=== PATIENT | male | born 1975 | race African-American/Black ===

== ENCOUNTER 2016-09-10 16:47 | Emergency (ER) | payer SELFPAY ==
[~2016-09-10] VITALS: Ht 177.8 cm; Wt 65.9 kg
[~2016-09-10 16:47] MED LIST: DILA8TAB4 PO; METH500T3 PO
[2016-09-10 16:48] VITALS: BP 137/82; PULSE 89; RESP 15; TEMP 98.2; O2SAT 98
[2016-09-10] MEDS ORDERED: IBUP800T23 PO (17:41)
[2016-09-10] MEDS ORDERED: PERI0.126 SWISH-SPIT (17:41)
[2016-09-10] MEDS ORDERED: AMOX500C PO (17:41)
--- NOTE | 2016-09-10 17:41 | PD ---
HPI Chief Complaint: Oral / Dental Pain or Problem Time Seen by Provider: 17:39 Travel History International Travel<30 days: No Contact w/Intl Traveler<30days: No Traveled to known affect area: No History of Present Illness HPI 40-year-old male presents to the emergency Department with complaint of left tooth pain. The patient is sleeping upon arrival into the room for physical exam. Patient is being non-cooperative with questions because he says it hurts too much to talk. Patient is unwilling to answer questions and be cooperative therefore history of present illness is limited. No other modifying factors or associated signs and symptoms. PFSH Past Medical History Medical History: Denies Significant Hx Diminished Hearing: No Hepatitis: Yes (C) Tetanus Vaccination: < 5 Years Influenza Vaccination: No Past Surgical History Other Surgery: Yes (hand) Social History Alcohol Use: Yes Tobacco Use: Yes (1 ppd) Substance Use: Yes (marijuana ) Allergies-Medications (Allergen,Severity, Reaction): Coded Allergies: Clindamycin (Verified Allergy, Intermediate, EDEMA, 09/10/16) Reported Meds & Prescriptions Reported Meds & Active Scripts Active Amoxicillin 500 Mg Cap 500 Mg PO BID 10 Days Ibuprofen 800 Mg Tab 800 Mg PO Q6HR PRN Peridex Liq (Chlorhexidine Gluconate (Mouth) Liq) 0.12% Soln 15 Ml SWISH-SPIT BID 10 Days Review of Systems Except as stated in HPI: all other systems reviewed are Neg Physical Exam Narrative GENERAL: Well-nourished, well-developed male patient, in no acute distress; afebrile, nontoxic-appearing; patient sleeping soundly prior to physical exam SKIN: Warm and dry. HEAD: Atraumatic. Normocephalic. No facial edema, erythema, tenderness on palpation. No lymphadenopathy. EYES: Pupils equal and round. No scleral icterus. No injection or drainage. ENT: Mucosa pink and moist. Airway patent. MOUTH: Mucous membranes moist, no lesions, tongue and gums appear normal. Unable to verify what tooth is painful secondary to patient being uncooperative during physical exam. NECK: Trachea midline. No lymphadenopathy. CARDIOVASCULAR: Regular rate. RESPIRATORY: No accessory muscle use. GASTROINTESTINAL: Flat. MUSCULOSKELETAL: No obvious deformities. No clubbing. No cyanosis. No edema. NEUROLOGICAL: Awake and alert. Oriented 3. No obvious cranial nerve deficits. Motor grossly within normal limits. Normal speech. PSYCHIATRIC: Appropriate mood and affect; insight and judgment normal. Data Data Last Documented VS Vital Signs Date Time Temp Pulse Resp B/P Pulse Ox O2 Delivery O2 Flow Rate FiO2 09/10/16 16:48 98.2 89 15 137/82 98 [facility] Medical Decision Making Medical Screen Exam Complete: Yes Emergency Medical Condition: Yes Medical Record Reviewed: Yes Differential Diagnosis Dentalgia, dental abscess, dental impaction, dental caries Narrative Course 40-year-old male physical examination consistent with left-sided dental pain. History of present illness and physical exam is limited secondary to patient being uncooperative when trying to obtain information. He was sleeping quietly and soundly, prior to physical exam, in the room. No facial edema or erythema. Patient is afebrile and nontoxic-appearing. Amoxicillin, Peridex mouth rinse , ibuprofen prescribed for home. Patient is medically cleared and stable for discharge. Discussed reasons to return to the emergency department. Instructed patient to follow up with primary care provider. Patient agrees with treatment plan. The patients vital signs are stable and the patient is stable for outpatient follow-up and treatment. Patient discharged home, stable and in no acute distress. Diagnosis Primary Impression: Dentalgia Referrals: Dentist Primary Care Physician Patient Instructions: Dental Abscess (ED), Dental Caries (ED), General Instructions, Toothache (ED) Departure Forms: Tests/Procedures, Work Release Enter return to work date: Sep 11, 2016 Additional Instructions: Complete full course of antibiotics Ibuprofen as directed and as needed to reduce pain and inflammation Use Use Peridex as directed for oral hygiene Warm compresses to the affected area Follow-up with dentist Follow-up with primary care provider Return to emergency department immediately with worsening of symptoms Med/Other Pt SpecificInfo: Prescription(s) given Scripts Amoxicillin 500 Mg [id number] Mg PO BID 10 Days Ref 0 Prov:Ada Dee 09/10/16 Ibuprofen 800 Mg [id number] Mg PO Q6HR PRN (PAIN) #30 TAB Ref 0 Prov:Ada Dee 09/10/16 Chlorhexidine Gluconate (Mouth) Liq (Peridex Liq)0.12% Soln15 Ml SWISH-SPIT BID 10 Days Ref 0 Prov:Ada Dee 09/10/16 Disposition: 01 DISCHARGE HOME Condition: Stable Ada Dee Sep 10, 2016 17:41
== END 2016-09-10 23:28 | disposition home or self-care (01) ==
LOC: NEPB 16:47
DX: K08.89 Other specified disorders of teeth and supporting structures (principal); F17.200 Nicotine dependence, unspecified, uncomplicated
CPT/HCPCS: 99282

== ENCOUNTER 2017-02-06 19:50 | Emergency (ER) | payer SELFPAY ==
[~2017-02-06] VITALS: Ht 177.8 cm; Wt 63.0 kg
[~2017-02-06 19:50] MED LIST changes: +AMOX500C PO; -DILA8TAB4 PO; +IBUP800T23 PO; -METH500T3 PO; +PERI0.126 SWISH-SPIT
[2017-02-06 20:00] VITALS: BP 160/88; PULSE 102; RESP 20; TEMP 97.8; O2SAT 99
[2017-02-06] MEDS ORDERED: SODIUM CHLOR 0.9% 1000 ML INJ 1,000 ML IV ONE (20:00)
--- NOTE | 2017-02-06 20:13 | PD ---
HPI . Diffuse muscle cramps Chief Complaint: Musculoskeletal Complaint Time Seen by Provider: 19:58 Travel History International Travel<30 days: No Contact w/Intl Traveler<30days: No Traveled to known affect area: No History of Present Illness HPI This patient presents to us via [facility] with the chief complaint of diffuse muscle cramps. This started after he used cocaine, heroin 1 and flakka. Onset of symptoms was a couple of hours ago. Patient reports that his symptoms were initially severe but had been somewhat improved by IV fluids given by EMS. PFSH Past Medical History Diminished Hearing: No Hepatitis: Yes (C) Medical other: Yes (polysubstance abuse) Past Surgical History Other Surgery: Yes (hand) Social History Alcohol Use: Yes Tobacco Use: Yes (1 ppd) Substance Use: Yes (marijuana ) Allergies-Medications (Allergen,Severity, Reaction): Coded Allergies: Clindamycin (Verified Allergy, Intermediate, EDEMA, 02/06/17) Reported Meds & Prescriptions Reported Meds & Active Scripts Active Amoxicillin 500 Mg Cap 500 Mg PO BID 10 Days Ibuprofen 800 Mg Tab 800 Mg PO Q6HR PRN Peridex Liq (Chlorhexidine Gluconate (Mouth) Liq) 0.12% Soln 15 Ml SWISH-SPIT BID 10 Days Review of Systems Except as stated in HPI: all other systems reviewed are Neg Musculoskeletal: Positive: Cramping Physical Exam Narrative GENERAL: Patient is awake and alert and does not appear to be in any acute distress. SKIN: Warm and dry. HEAD: Atraumatic. Normocephalic. EYES: Pupils equal and round. Extraocular movements are intact. ENT: No nasal bleeding or discharge. Mucous membranes pink and moist. NECK: Trachea midline. Neck is supple. CARDIOVASCULAR: Regular rate and rhythm. Heart sounds are normal. RESPIRATORY: No accessory muscle use. Lungs are clear with full air movement throughout. GASTROINTESTINAL: Abdomen soft, non-tender, nondistended. MUSCULOSKELETAL: No obvious deformities. No edema. NEUROLOGICAL: Awake and alert. No obvious cranial nerve deficits. Motor grossly within normal limits. Normal speech. PSYCHIATRIC: Appropriate mood and affect; insight and judgment normal. Data Data Last Documented VS Vital Signs Date Time Temp Pulse Resp B/P Pulse Ox O2 Delivery O2 Flow Rate FiO2 02/06/17 20:00 97.8 102 20 160/88 99 Orders Complete Blood Count With Diff (02/06/17 19:58) Comprehensive Metabolic Panel (02/06/17 19:58) Creatine Kinase (Cpk) (02/06/17 19:58) Sodium Chlor 0.9% 1000 Ml Inj (Ns 1000 M (02/06/17 20:00) CKMB (02/06/17 20:11) CKMB% (02/06/17 20:11) Labs Laboratory Tests Test 02/06/17 20:11 White Blood Count 11.2 TH/MM3 Red Blood Count 4.69 MIL/MM3 Hemoglobin 12.5 GM/DL Hematocrit 38.5 % Mean Corpuscular Volume 82.1 FL Mean Corpuscular Hemoglobin 26.7 PG Mean Corpuscular Hemoglobin 32.5 % Concent Red Cell Distribution Width 15.5 % Platelet Count 172 TH/MM3 Mean Platelet Volume 9.4 FL Neutrophils (%) (Auto) 76.8 % Lymphocytes (%) (Auto) 11.0 % Monocytes (%) (Auto) 11.3 % Eosinophils (%) (Auto) 0.3 % Basophils (%) (Auto) 0.6 % Neutrophils # (Auto) 8.6 TH/MM3 Lymphocytes # (Auto) 1.2 TH/MM3 Monocytes # (Auto) 1.3 TH/MM3 Eosinophils # (Auto) 0.0 TH/MM3 Basophils # (Auto) 0.1 TH/MM3 CBC Comment DIFF FINAL Differential Comment Sodium Level 137 MEQ/L Potassium Level 3.8 MEQ/L Chloride Level 105 MEQ/L Carbon Dioxide Level 22.1 MEQ/L Anion Gap 10 MEQ/L Blood Urea Nitrogen 38 MG/DL Creatinine 1.91 MG/DL Estimat Glomerular Filtration 48 ML/MIN Rate Random Glucose 80 MG/DL Calcium Level 8.6 MG/DL Total Bilirubin 0.6 MG/DL Aspartate Amino Transf 43 U/L (AST/SGOT) Alanine Aminotransferase 57 U/L (ALT/SGPT) Alkaline Phosphatase 87 U/L Total Creatine Kinase 377 U/L Total Protein 8.1 GM/DL Albumin 4.3 GM/DL [facility] Medical Decision Making Medical Screen Exam Complete: Yes Emergency Medical Condition: Yes Differential Diagnosis Differential diagnosis includes but is not limited to polysubstance abuse, suicidal ideation, manipulative behavior, rhabdomyolysis Narrative Course This patient presents complaining with diffuse muscle spasms after using cocaine , heroin and flakka. He'll be treated with IV fluids. Routine labs will be checked including a CK to rule out rhabdomyolysis. CBC & BMP Diagram 02/06/17 20:11 LFTs are essentially normal. Total CK is 377. The patient is now resting comfortably. He is stable for discharge. Diagnosis Primary Impression: Polysubstance abuse Additional Impression: Cramps, muscle, general Disposition: 01 DISCHARGE HOME Condition: Stable Jennifer Gallardo MD Feb 06, 2017 20:13
[2017-02-06 20:21] LABS: AUTOMATED NEUTROPHIL # 8.6 TH/MM3 (1.8-7.7); BASOPHIL # 0.1 TH/MM3 (0-0.2); BASOPHIL % 0.6 % (0.0-2.0); EOSINOPHIL % 0.3 % (0.0-4.0); HEMATOCRIT 38.5 % (39.0-51.0); HEMO FLAGS DIFF FINAL; LYMPHOCYTE # 1.2 TH/MM3 (1.0-4.8); MEAN CELL VOLUME 82.1 FL (80.0-100.0); MEAN CORPUSCULAR HEMOGLOBIN 26.7 PG (27.0-34.0); MEAN CORPUSCULAR HGB CONC 32.5 % (32.0-36.0); MONO % 11.3 % (0.0-8.0); NEUT % 76.8 % (16.0-70.0); PLATELET COUNT 172 TH/MM3 (150-450); RED BLOOD COUNT 4.69 MIL/MM3 (4.50-5.90); RED CELL DISTRIBUTION WIDTH 15.5 % (11.6-17.2); WHITE BLOOD COUNT 11.2 TH/MM3 (4.0-11.0)
[2017-02-06 20:42] LABS: ALT (GPT) 57 U/L (12-78)
[2017-02-06 20:43] LABS: ANION GAP 10 MEQ/L (5-15); AST (GOT) 43 U/L (15-37); BICARBONATE 22.1 MEQ/L (21.0-32.0); BLOOD UREA NITROGEN 38 MG/DL (7-18); CHLORIDE 105 MEQ/L (98-107); GLOMERULAR FILTRATION RATE 48 ML/MIN (>89); POTASSIUM 3.8 MEQ/L (3.5-5.1); SODIUM (NA) 137 MEQ/L (136-145)
[2017-02-06 20:44] LABS: ALKALINE PHOSPHATASE 87 U/L (45-117); CREATINE KINASE 377 U/L (39-308); TOTAL BILIRUBIN ADULT 0.6 MG/DL (0.2-1.0)
[2017-02-06 21:00] LABS: CKMB 0.7 NG/ML (0.5-3.6)
[2017-02-06 21:02] VITALS: BP 149/78; PULSE 90; RESP 18; O2SAT 100
== END 2017-02-06 21:13 | disposition home or self-care (01) ==
LOC: NEPC 19:50
DX: F19.10 Other psychoactive substance abuse, uncomplicated (principal); M62.838 Other muscle spasm; F17.200 Nicotine dependence, unspecified, uncomplicated; Z79.899 Other long term (current) drug therapy
CPT/HCPCS: 80053; 82550; 82552; 85025; 96360; 99284; J7030

== ENCOUNTER 2017-07-30 20:29 | Emergency (ER) | payer SELFPAY ==
[~2017-07-30] VITALS: Ht 170.2 cm; Wt 65.0 kg
[~2017-07-30 20:29] MED LIST changes: +IBUP1TAB7 PO; -IBUP800T23 PO
[2017-07-30 20:54] VITALS: BP 138/86; PULSE 107; RESP 18; TEMP 98.1; O2SAT 99
[2017-07-30 20:58] VITALS: O2SAT 99
[2017-07-30] MEDS ORDERED: LITH150C PO (21:00)
[2017-07-30] MEDS ORDERED: RISP3 PO (21:02)
[2017-07-30] MEDS ORDERED: TRAZ1TAB14 PO (21:02)
[2017-07-30] MEDS ORDERED: LITH300C2 PO (21:02)
--- NOTE | 2017-07-30 21:30 | RADRPT ---
EXAM DATE/TIME: 07/30/2017 21:10 [place] COMPARISON: No previous studies available for comparison. INDICATIONS : Altered mental status. RADIATION DOSE: 69.15 CTDIvol (mGy) MEDICAL HISTORY : Drug abuse. SURGICAL HISTORY : None. ENCOUNTER: Initial ACUITY: 1 day PAIN SCALE: 0/10 LOCATION: cranial TECHNIQUE: Multiple contiguous axial images were obtained of the head. Using automated exposure control and adj ustment of the mA and/or kV according to patient size, radiation dose was kept as low as reasonably a chievable to obtain optimal diagnostic quality images. DICOM format image data is available electro nically for review and comparison. FINDINGS: CEREBRUM: The ventricles are normal for age. No evidence of midline shift, mass lesion, hemorrhage or acute in farction. No extra-axial fluid collections are seen. POSTERIOR FOSSA: The cerebellum and brainstem are intact. The 4th ventricle is midline. The cerebellopontine angle i s unremarkable. EXTRACRANIAL: The visualized portion of the orbits is intact. SKULL: The calvaria is intact. No evidence of skull fracture. CONCLUSION: Normal examination. Christos Nichols Jr., MD on July 30, 2017 at 21:26 Board Certified Radiologist. This report was verified electronically.
--- NOTE | 2017-07-30 21:37 | PD ---
HPI Chief Complaint: Altered Mental Status Time Seen by Provider: 20:57 Travel History International Travel<30 days: No Contact w/Intl Traveler<30days: No Traveled to known affect area: No History of Present Illness HPI 41-year-old male that presents to the ED for evaluation of altered mental status. Apparently patient had a possible seizure. Patient has a history of substance abuse on states that he has been using Flector, cocaine, heroine multiple other drugs recently. Per patient his last use today. Per patient he had a possible seizure today. Per patient somebody called the ambulance on him. He states that he did not came back to read until he wants in the ambulance. Per patient he did use today. He denies any chest pain or shortness of breath. No headache beer per patient he has a history of psychiatric illness since supposed to take lithium. He will not really tell me what psychiatric diagnosis he has had. Per patient he wants recently released from snf in follow without hearing officer. He denies any injuries of any kind. He does not remember the episode beer per patient has had seizures before but never been diagnosed with seizure disorder. Allergies to clindamycin. No urinary or bowel movement issues. History as limited because of acute intoxication. PFSH Past Medical History Diminished Hearing: No Hepatitis: Yes (C) Medical other: Yes (SEIZURES) Seizures: Yes Influenza Vaccination: No Past Surgical History Other Surgery: Yes (hand) Social History Alcohol Use: Yes Tobacco Use: Yes (1 ppd) Substance Use: Yes (marijuana , METH, HEROIN, LEON, FLAKKA) Allergies-Medications (Allergen,Severity, Reaction): Coded Allergies: clindamycin (Unverified Allergy, Intermediate, EDEMA, 07/30/17) Reported Meds & Prescriptions Reported Meds & Active Scripts Active Reported [place] Carbonate 300 Mg Cap 300 Mg PO BID Trazodone (Trazodone HCl) 150 Mg Tablet 150 Mg PO HS Risperdal (Risperidone) 3 Mg Tab 3 Mg PO HS Review of Systems ROS Limitations: Intoxication Except as stated in HPI: all other systems reviewed are Neg Physical Exam Exam Limitations: Intoxication Narrative GENERAL: SKIN: Warm and dry. HEAD: Atraumatic. Normocephalic. EYES: Pupils equal and round. No scleral icterus. No injection or drainage. ENT: No nasal bleeding or discharge. Mucous membranes pink and moist. Tongue midline. No uvula deviation. NECK: Trachea midline. No JVD. CARDIOVASCULAR: Regular rate and rhythm. No murmurs, S3, S4. RESPIRATORY: No accessory muscle use. Clear to auscultation. Breath sounds equal bilaterally. GASTROINTESTINAL: Abdomen soft, non-tender, nondistended. Hepatic and splenic margins not palpable. MUSCULOSKELETAL: Extremities without clubbing, cyanosis, or edema. No obvious deformities. Full range of motion of the (lower extremities bilaterally. NEUROLOGICAL: Awake and alert. No obvious cranial nerve deficits. Motor grossly within normal limits. Five out of 5 muscle strength in the arms and legs. Normal speech. PSYCHIATRIC: Appropriate mood and affect; insight and judgment normal. Data Data Last Documented VS Vital Signs Date Time Temp Pulse Resp B/P (MAP) Pulse Ox O2 Delivery O2 Flow Rate FiO2 07/30/17 20:58 99 Room Air 07/30/17 20:54 98.1 107 18 138/86 (103) Orders Orders Electrocardiogram (07/30/17 20:56) Complete Blood Count With Diff (07/30/17 20:56) Comprehensive Metabolic Panel (07/30/17 20:56) Creatine Kinase (Cpk) (07/30/17 20:56) Magnesium (Mg) (07/30/17 20:56) [place] (Li) (07/30/17 20:56) Ct Brain W/O Iv Contrast(Rout) (07/30/17 20:56) Iv Access Insert/Monitor (07/30/17 20:56) Ecg Monitoring (07/30/17 20:56) Oximetry (07/30/17 20:56) Drug Screen, Random Urine (07/30/17 20:56) Alcohol (Ethanol) (07/30/17 20:56) Salicylates (Aspirin) (07/30/17 20:56) Tylenol (Acetaminophen) (07/30/17 20:56) Labs Laboratory Tests Test 07/30/17 21:42 White Blood Count 14.6 TH/MM3 Red Blood Count 5.03 MIL/MM3 Hemoglobin 13.3 GM/DL Hematocrit 41.2 % Mean Corpuscular Volume 81.8 FL Mean Corpuscular Hemoglobin 26.4 PG Mean Corpuscular Hemoglobin Concent 32.3 % Red Cell Distribution Width 15.2 % Platelet Count 200 TH/MM3 Mean Platelet Volume 9.6 FL Neutrophils (%) (Auto) 69.3 % Lymphocytes (%) (Auto) 17.2 % Monocytes (%) (Auto) 11.9 % Eosinophils (%) (Auto) 0.9 % Basophils (%) (Auto) 0.7 % Neutrophils # (Auto) 10.1 TH/MM3 Lymphocytes # (Auto) 2.5 TH/MM3 Monocytes # (Auto) 1.7 TH/MM3 Eosinophils # (Auto) 0.1 TH/MM3 Basophils # (Auto) 0.1 TH/MM3 CBC Comment DIFF FINAL Differential Comment MDM Medical Decision Making Medical Screen Exam Complete: Yes Emergency Medical Condition: Yes Medical Record Reviewed: Yes Interpretation(s) Last Impressions Head CT 07/30/172055 Signed Impressions: Service Date/Time: Sunday, July 30, 2017 21:10 - CONCLUSION: Normal examination. Christos Nichols Jr., MD CBC & BMP Diagram 07/30/17 21:42 Differential Diagnosis Polysubstance abuse versus seizure versus syncope versus altered mental status Narrative Course 41-year-old male presents to the ED for evaluation of possible seizure. Patient has probably examinable spine to have signs on symptoms of unclear etiology at this time. Likely polysubstance related. Labs and imaging were ordered. Case signed out to my attending. Diagnosis Primary Impression: Polysubstance abuse Immanuel Jacobs Jul 30, 2017 21:37
[2017-07-30 22:24] LABS: AUTOMATED NEUTROPHIL # 10.1 TH/MM3 (1.8-7.7); BASOPHIL # 0.1 TH/MM3 (0-0.2); BASOPHIL % 0.7 % (0.0-2.0); EOSINOPHIL # 0.1 TH/MM3 (0-0.4); EOSINOPHIL % 0.9 % (0.0-4.0); HEMATOCRIT 41.2 % (39.0-51.0); HEMOGLOBIN 13.3 GM/DL (13.0-17.0); LYMPH % 17.2 % (9.0-44.0); LYMPHOCYTE # 2.5 TH/MM3 (1.0-4.8); MEAN CELL VOLUME 81.8 FL (80.0-100.0); MEAN CORPUSCULAR HEMOGLOBIN 26.4 PG (27.0-34.0); MEAN CORPUSCULAR HGB CONC 32.3 % (32.0-36.0); MEAN PLATELET VOLUME 9.6 FL (7.0-11.0); MONO % 11.9 % (0.0-8.0); MONOCYTE # 1.7 TH/MM3 (0-0.9); NEUT % 69.3 % (16.0-70.0); PLATELET COUNT 200 TH/MM3 (150-450); RED BLOOD COUNT 5.03 MIL/MM3 (4.50-5.90); RED CELL DISTRIBUTION WIDTH 15.2 % (11.6-17.2); WHITE BLOOD COUNT 14.6 TH/MM3 (4.0-11.0)
[2017-07-30 22:46] VITALS: BP 117/67; PULSE 78; RESP 18; O2SAT 99
[2017-07-30 23:03] LABS: ALBUMIN 4.2 GM/DL (3.4-5.0); AST (GOT) 45 U/L (15-37); BICARBONATE 28.5 MEQ/L (21.0-32.0); BLOOD UREA NITROGEN 20 MG/DL (7-18); CALCIUM 9.7 MG/DL (8.5-10.1); CHLORIDE 98 MEQ/L (98-107); CREATININE 1.21 MG/DL (0.60-1.30); GLOMERULAR FILTRATION RATE 81 ML/MIN (>89); GLUCOSE,RANDOM 76 MG/DL (74-106); MAGNESIUM 2.3 MG/DL (1.5-2.5); SODIUM (NA) 135 MEQ/L (136-145)
[2017-07-30 23:04] LABS: ALT (GPT) 68 U/L (12-78)
[2017-07-30 23:06] LABS: ALKALINE PHOSPHATASE 107 U/L (45-117); TOTAL BILIRUBIN ADULT 0.4 MG/DL (0.2-1.0); TOTAL PROTEIN 8.6 GM/DL (6.4-8.2)
[2017-07-30 23:08] LABS: ACETAMINOPHEN LESS THAN 2.0 MCG/ML (10.0-30.0)
--- NOTE | 2017-07-31 01:17 | PD ---
Data Data Last Documented VS Vital Signs Date Time Temp Pulse Resp B/P (MAP) Pulse Ox O2 Delivery O2 Flow Rate FiO2 07/31/17 00:50 07/30/17 22:46 89 18 99 Room Air 07/30/17 20:54 98.1 Orders Orders Electrocardiogram (07/30/17 20:56) Complete Blood Count With Diff (07/30/17 20:56) Comprehensive Metabolic Panel (07/30/17 20:56) Creatine Kinase (Cpk) (07/30/17 20:56) Magnesium (Mg) (07/30/17 20:56) [place] (Li) (07/30/17 20:56) Ct Brain W/O Iv Contrast(Rout) (07/30/17 20:56) Iv Access Insert/Monitor (07/30/17 20:56) Ecg Monitoring (07/30/17 20:56) Oximetry (07/30/17 20:56) Drug Screen, Random Urine (07/30/17 20:56) Alcohol (Ethanol) (07/30/17 20:56) Salicylates (Aspirin) (07/30/17 20:56) Tylenol (Acetaminophen) (07/30/17 20:56) Psych Screen (07/30/17 22:45) CKMB (07/30/17 21:42) CKMB% (07/30/17 21:42) Labs Laboratory Tests Test 07/30/17 21:42 White Blood Count 14.6 TH/MM3 Red Blood Count 5.03 MIL/MM3 Hemoglobin 13.3 GM/DL Hematocrit 41.2 % Mean Corpuscular Volume 81.8 FL Mean Corpuscular Hemoglobin 26.4 PG Mean Corpuscular Hemoglobin Concent 32.3 % Red Cell Distribution Width 15.2 % Platelet Count 200 TH/MM3 Mean Platelet Volume 9.6 FL Neutrophils (%) (Auto) 69.3 % Lymphocytes (%) (Auto) 17.2 % Monocytes (%) (Auto) 11.9 % Eosinophils (%) (Auto) 0.9 % Basophils (%) (Auto) 0.7 % Neutrophils # (Auto) 10.1 TH/MM3 Lymphocytes # (Auto) 2.5 TH/MM3 Monocytes # (Auto) 1.7 TH/MM3 Eosinophils # (Auto) 0.1 TH/MM3 Basophils # (Auto) 0.1 TH/MM3 CBC Comment DIFF FINAL Differential Comment Blood Urea Nitrogen 20 MG/DL Creatinine 1.21 MG/DL Random Glucose 76 MG/DL Total Protein 8.6 GM/DL Albumin 4.2 GM/DL Calcium Level 9.7 MG/DL Magnesium Level 2.3 MG/DL Alkaline Phosphatase 107 U/L Aspartate Amino Transf (AST/SGOT) 45 U/L Alanine Aminotransferase (ALT/SGPT) 68 U/L Total Bilirubin 0.4 MG/DL Sodium Level 135 MEQ/L Potassium Level 4.2 MEQ/L Chloride Level 98 MEQ/L Carbon Dioxide Level 28.5 MEQ/L Anion Gap 9 MEQ/L Estimat Glomerular Filtration Rate 81 ML/MIN Total Creatine Kinase 486 U/L Creatine Kinase MB 2.1 NG/ML Creatine Kinase MB % 0.4 % Salicylates Level LESS THAN 1.7 MG/DL Urine Opiates Screen NEG Acetaminophen Level LESS THAN 2.0 MCG/ML Urine Barbiturates Screen NEG Urine Amphetamines Screen POS Urine Benzodiazepines Screen NEG [place] Level 0.3 MEQ/L Urine Cocaine Screen POS Urine Cannabinoids Screen NEG Ethyl Alcohol Level LESS THAN 3 MG/DL [facility] Medical Record Reviewed: Yes Supervised Visit with ANU: No Narrative Course During the course of the patients emergency department visit, the patients history, examination, and differential diagnosis were reviewed with the patient. The patient was placed on a brand marketing intern with oximetry and frequent blood pressure monitoring. The patient had IV access obtained and blood work sent for analysis. The patient's case was checked out to me by Richard. Please see complete history and physical. The patient's case was checked out to me at the conclusion of his shift. The patient was pending psychiatric screen. The patient has a known history of psychiatric disorder on lithium. He has not been compliant with his medication. He also has been using multiple different street drugs. He reports that today he used K2. The patients laboratory studies were reviewed and remarkable for a white count of 14.6, hemoglobin 13.3, platelets 200, 11.9 monocytes, CMP as remarkable for sodium of 135, BUN 20, GFR 81, AST 45, CPK 486, MB percent 0.4, urine drug screen as positive for amphetamines in cocaine, alcohol level less than 3, acetaminophen less than 2, salicylate less than 1.7, lithium 0.3, thus low. Radiology studies were reviewed and remarkable for a CT scan of the brain that showed no acute abnormality. The patient was not observed in the emergency department over a few hours. The patient remained awake an alert, cooperative. The patient was not walking [id number] to the bathroom with a steady gait. The patient reports that he has a court appointment in the morning and would like to leave. The patient is still pending psychiatric screen and reports that he cannot wait any longer. The patient was reexamined and continues to report no suicidal or homicidal ideations. The patient is awake and alert and appears back to his baseline of mentation. The patient prefers to follow-up as an outpatient with his psychiatrist. The patient made multiple attempts to call friends for a ride, however no was able to pick him up. The patient was provided a taxi pass by case management to return home. The patient is resting comfortably and feels better, is alert and in no distress. The patients results and examination findings were discussed with the patient. The repeat examination is unremarkable and benign. The history, exam, diagnostic testing, and current condition do not suggest any significant pathology to warrant further testing, continued ED treatment, admission, or surgical evaluation at this point. The vital signs have been stable. The patient does not have uncontrollable pain, intractable vomiting, or other significant symptoms. The patient's condition is stable and appropriate for discharge. The patient will pursue further outpatient evaluation with a primary care physician or other designated or consulting physician as indicated in the discharge instructions. The patient expressed understanding and was agreeable with this plan. Diagnosis Primary Impression: Polysubstance abuse Additional Impression: Psychiatric disorder Referrals: Psychiatrist 2 days Patient Instructions: General Instructions, Polysubstance Abuse (ED) Departure Forms: Tests/Procedures Disposition: 01 DISCHARGE HOME Condition: Stable Kate Nelson MD Jul 31, 2017 01:17
--- NOTE | 2017-07-31 09:46 | EKG ---
Date Performed: 07/30/2017 Time Performed: 20:54:30 PTAGE: 41 years EKG: Sinus rhythm POSSIBLE LEFT ATRIAL ENLARGEMENT POSSIBLE RIGHT VENTRICULAR CONDUCTION DELAY BORDERLINE ECG NO PREVIOUS TRACING DOCTOR: Chad Dixon Interpretating Date/Time 07/31/2017 09:45:37
== END 2017-07-31 01:06 | disposition home or self-care (01) ==
LOC: NEPE 20:29
DX: F19.10 Other psychoactive substance abuse, uncomplicated (principal); F99 Mental disorder, not otherwise specified; Z79.899 Other long term (current) drug therapy
CPT/HCPCS: 70450; 80053; 80178; 80307; 82550; 82552; 83735; 85025; 93005; 99285

== ENCOUNTER 2017-07-31 15:33 | Emergency (ER) | payer SELFPAY ==
[~2017-07-31] VITALS: Ht 170.2 cm; Wt 62.0 kg
[~2017-07-31 15:33] MED LIST changes: -AMOX500C PO; -IBUP1TAB7 PO; +LITH300C2 PO; -PERI0.126 SWISH-SPIT; +RISP3 PO; +TRAZ1TAB14 PO
[2017-07-31 15:45] VITALS: BP 147/89; PULSE 105; RESP 16; TEMP 98.6; O2SAT 97
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
== END 2017-07-31 17:34 ==
LOC: PHEFT 15:33
DX: F19.10 Other psychoactive substance abuse, uncomplicated (principal); B19.20 Unspecified viral hepatitis C without hepatic coma; F17.200 Nicotine dependence, unspecified, uncomplicated; Z86.69 Personal history of other diseases of the nervous system and sense organs
CPT/HCPCS: 99282

== ENCOUNTER 2017-08-21 03:19 | Emergency (ER) | payer SELFPAY ==
[~2017-08-21] VITALS: Ht 175.3 cm; Wt 61.5 kg
[2017-08-21 03:20] VITALS: BP 154/99; PULSE 79; RESP 14; TEMP 98; O2SAT 96
[2017-08-21 04:52] LABS: AUTOMATED NEUTROPHIL # 3.8 TH/MM3 (1.8-7.7); BASOPHIL # 0.1 TH/MM3 (0-0.2); BASOPHIL % 1.1 % (0.0-2.0); EOSINOPHIL # 0.2 TH/MM3 (0-0.4); EOSINOPHIL % 2.6 % (0.0-4.0); HEMATOCRIT 37.1 % (39.0-51.0); HEMOGLOBIN 12.3 GM/DL (13.0-17.0); LYMPH % 36.7 % (9.0-44.0); LYMPHOCYTE # 2.7 TH/MM3 (1.0-4.8); MEAN CELL VOLUME 80.5 FL (80.0-100.0); MEAN CORPUSCULAR HEMOGLOBIN 26.7 PG (27.0-34.0); MEAN CORPUSCULAR HGB CONC 33.1 % (32.0-36.0); MEAN PLATELET VOLUME 8.6 FL (7.0-11.0); MONO % 8.3 % (0.0-8.0); MONOCYTE # 0.6 TH/MM3 (0-0.9); NEUT % 51.3 % (16.0-70.0); PLATELET COUNT 257 TH/MM3 (150-450); RED BLOOD COUNT 4.61 MIL/MM3 (4.50-5.90); RED CELL DISTRIBUTION WIDTH 14.5 % (11.6-17.2); WHITE BLOOD COUNT 7.4 TH/MM3 (4.0-11.0)
--- NOTE | 2017-08-21 04:59 | PD ---
HPI Chief Complaint: Psychiatric Symptoms Time Seen by Provider: 03:42 Travel History International Travel<30 days: No Contact w/Intl Traveler<30days: No Traveled to known affect area: No History of Present Illness HPI Patient is a 41-year-old male admitted to the emergency department for evaluation of suicidal ideation. He denies any previous suicide attempt or current plan. He states he is tired, feels depressed and is off of his medications. Patient reports a history of schizophrenia and hepatitis C. He states that he was on risperidone and trazodone, he has been off of these medications for approximately 1 month. Patient endorses marijuana use today but denies any other illicit drug use. Patient has no physical complaints at this time. Symptom onset has been gradual, there are no alleviating or exacerbating factors. PFSH Past Medical History Bipolar Disorder: Yes Depression: Yes Cardiovascular Problems: Yes (AORTIC TUMOR) Diminished Hearing: No Gastrointestinal Disorders: Yes (PANCREATITIS) Hepatitis: Yes (C) Myocardial Infarction: Yes Schizophrenia: Yes Seizures: Yes Past Surgical History Other Surgery: Yes (hand) Social History Alcohol Use: Yes Tobacco Use: Yes (1 ppd) Substance Use: Yes (marijuana , METH, HEROIN, LEON, FLAKKA) Allergies-Medications (Allergen,Severity, Reaction): Coded Allergies: clindamycin (Verified Allergy, Intermediate, EDEMA, 08/21/17) Reported Meds & Prescriptions Reported Meds & Active Scripts Active Review of Systems Except as stated in HPI: all other systems reviewed are Neg Psychiatric: Positive: Suicidal Ideations Physical Exam Narrative GENERAL: Well-developed, well-nourished, alert -[place] male. Resting comfortably no acute distress. SKIN: Warm and dry. HEAD: Atraumatic. Normocephalic. EYES: Pupils equal and round. No scleral icterus. No injection or drainage. ENT: No nasal bleeding or discharge. Mucous membranes pink and moist. NECK: Trachea midline. No JVD. CARDIOVASCULAR: Regular rate and rhythm. RESPIRATORY: No accessory muscle use. Clear to auscultation. Breath sounds equal bilaterally. GASTROINTESTINAL: Abdomen soft, non-tender, nondistended. Hepatic and splenic margins not palpable. MUSCULOSKELETAL: Extremities without clubbing, cyanosis, or edema. No obvious deformities. NEUROLOGICAL: Awake and alert. No obvious cranial nerve deficits. Motor grossly within normal limits. Five out of 5 muscle strength in the arms and legs. Normal speech. PSYCHIATRIC: Depressed te mood and affect; insight and judgment normal. Data Data Last Documented VS Vital Signs Date Time Temp Pulse Resp B/P (MAP) Pulse Ox O2 Delivery O2 Flow Rate FiO2 08/21/17 03:20 98.0 79 14 154/99 (117) 96 Room Air Orders Orders Complete Blood Count With Diff (08/21/17 03:49) Comprehensive Metabolic Panel (08/21/17 03:49) Thyroid Stimulating Hormone (08/21/17 03:49) Psych Screen (08/21/17 03:49) Drug Screen, Random Urine (08/21/17 03:49) Labs Laboratory Tests Test 08/21/17 04:35 White Blood Count 7.4 TH/MM3 Red Blood Count 4.61 MIL/MM3 Hemoglobin 12.3 GM/DL Hematocrit 37.1 % Mean Corpuscular Volume 80.5 FL Mean Corpuscular Hemoglobin 26.7 PG Mean Corpuscular Hemoglobin Concent 33.1 % Red Cell Distribution Width 14.5 % Platelet Count 257 TH/MM3 Mean Platelet Volume 8.6 FL Neutrophils (%) (Auto) 51.3 % Lymphocytes (%) (Auto) 36.7 % Monocytes (%) (Auto) 8.3 % Eosinophils (%) (Auto) 2.6 % Basophils (%) (Auto) 1.1 % Neutrophils # (Auto) 3.8 TH/MM3 Lymphocytes # (Auto) 2.7 TH/MM3 Monocytes # (Auto) 0.6 TH/MM3 Eosinophils # (Auto) 0.2 TH/MM3 Basophils # (Auto) 0.1 TH/MM3 CBC Comment DIFF FINAL Differential Comment Blood Urea Nitrogen 13 MG/DL Creatinine 1.11 MG/DL Random Glucose 84 MG/DL Total Protein 7.1 GM/DL Albumin 3.4 GM/DL Calcium Level 9.1 MG/DL Alkaline Phosphatase 88 U/L Aspartate Amino Transf (AST/SGOT) 28 U/L Alanine Aminotransferase (ALT/SGPT) 42 U/L Total Bilirubin 0.2 MG/DL Sodium Level 140 MEQ/L Potassium Level 3.8 MEQ/L Chloride Level 104 MEQ/L Carbon Dioxide Level 28.3 MEQ/L Anion Gap 8 MEQ/L Estimat Glomerular Filtration Rate 89 ML/MIN Thyroid Stimulating Hormone 3rd Gen 1.850 uIU/ML MDM Medical Decision Making Medical Screen Exam Complete: Yes Emergency Medical Condition: Yes Medical Record Reviewed: Yes Interpretation(s) Laboratory Tests Test 08/21/17 04:35 White Blood Count 7.4 TH/MM3 Red Blood Count 4.61 MIL/MM3 Hemoglobin 12.3 GM/DL Hematocrit 37.1 % Mean Corpuscular Volume 80.5 FL Mean Corpuscular Hemoglobin 26.7 PG Mean Corpuscular Hemoglobin Concent 33.1 % Red Cell Distribution Width 14.5 % Platelet Count 257 TH/MM3 Mean Platelet Volume 8.6 FL Neutrophils (%) (Auto) 51.3 % Lymphocytes (%) (Auto) 36.7 % Monocytes (%) (Auto) 8.3 % Eosinophils (%) (Auto) 2.6 % Basophils (%) (Auto) 1.1 % Neutrophils # (Auto) 3.8 TH/MM3 Lymphocytes # (Auto) 2.7 TH/MM3 Monocytes # (Auto) 0.6 TH/MM3 Eosinophils # (Auto) 0.2 TH/MM3 Basophils # (Auto) 0.1 TH/MM3 CBC Comment DIFF FINAL Differential Comment Blood Urea Nitrogen 13 MG/DL Creatinine 1.11 MG/DL Random Glucose 84 MG/DL Total Protein 7.1 GM/DL Albumin 3.4 GM/DL Calcium Level 9.1 MG/DL Alkaline Phosphatase 88 U/L Aspartate Amino Transf (AST/SGOT) 28 U/L Alanine Aminotransferase (ALT/SGPT) 42 U/L Total Bilirubin 0.2 MG/DL Sodium Level 140 MEQ/L Potassium Level 3.8 MEQ/L Chloride Level 104 MEQ/L Carbon Dioxide Level 28.3 MEQ/L Anion Gap 8 MEQ/L Estimat Glomerular Filtration Rate 89 ML/MIN Thyroid Stimulating Hormone 3rd Gen 1.850 uIU/ML Vital Signs Date Time Temp Pulse Resp B/P (MAP) Pulse Ox O2 Delivery O2 Flow Rate FiO2 08/21/17 03:20 98.0 79 14 154/99 (117) 96 Room Air Differential Diagnosis Mood disorder versus substance abuse or his suicidal ideations versus depression versus other Narrative Course Patient is a 41-year-old male presented to the emergency department voluntarily for psychiatric evaluation. Patient is well appearing, his vital signs are stable. Mental health screening discussed with the patient. Psychiatric screen ordered. No acute findings identified. Patient is medically cleared for psychiatric evaluation at this time. Diagnosis Primary Impression: Medical clearance for psychiatric admission Condition: Stable Barb Lagunas Aug 21, 2017 04:59
[2017-08-21 05:20] LABS: ALBUMIN 3.4 GM/DL (3.4-5.0); ALT (GPT) 42 U/L (12-78); AST (GOT) 28 U/L (15-37); BICARBONATE 28.3 MEQ/L (21.0-32.0); BLOOD UREA NITROGEN 13 MG/DL (7-18); CALCIUM 9.1 MG/DL (8.5-10.1); CHLORIDE 104 MEQ/L (98-107); CREATININE 1.11 MG/DL (0.60-1.30); GLOMERULAR FILTRATION RATE 89 ML/MIN (>89); GLUCOSE,RANDOM 84 MG/DL (74-106); SODIUM (NA) 140 MEQ/L (136-145)
[2017-08-21 05:30] LABS: ALKALINE PHOSPHATASE 88 U/L (45-117); TOTAL BILIRUBIN ADULT 0.2 MG/DL (0.2-1.0); TOTAL PROTEIN 7.1 GM/DL (6.4-8.2)
[2017-08-21 08:16] VITALS: BP 132/64; PULSE 70; RESP 15; TEMP 98.4; O2SAT 99
--- NOTE | 2017-08-21 11:42 | PD ---
Physical Exam Time Seen by Provider: 11:39 Ann Tam has evaluated the patient and cleared the patient for discharge. The patient will follow-up with Thee Roman. Data Data Last Documented VS Vital Signs Date Time Temp Pulse Resp B/P (MAP) Pulse Ox O2 Delivery O2 Flow Rate FiO2 08/21/17 08:16 98.4 70 15 132/64 (86) 99 Room Air Orders Orders Complete Blood Count With Diff (08/21/17 03:49) Comprehensive Metabolic Panel (08/21/17 03:49) Thyroid Stimulating Hormone (08/21/17 03:49) Drug Screen, Random Urine (08/21/17 03:49) Diet Regular Basic (08/21/17 Breakfast) Ed Discharge Order (08/21/17 11:25) Labs Laboratory Tests Test 08/21/17 04:35 White Blood Count 7.4 TH/MM3 Red Blood Count 4.61 MIL/MM3 Hemoglobin 12.3 GM/DL Hematocrit 37.1 % Mean Corpuscular Volume 80.5 FL Mean Corpuscular Hemoglobin 26.7 PG Mean Corpuscular Hemoglobin Concent 33.1 % Red Cell Distribution Width 14.5 % Platelet Count 257 TH/MM3 Mean Platelet Volume 8.6 FL Neutrophils (%) (Auto) 51.3 % Lymphocytes (%) (Auto) 36.7 % Monocytes (%) (Auto) 8.3 % Eosinophils (%) (Auto) 2.6 % Basophils (%) (Auto) 1.1 % Neutrophils # (Auto) 3.8 TH/MM3 Lymphocytes # (Auto) 2.7 TH/MM3 Monocytes # (Auto) 0.6 TH/MM3 Eosinophils # (Auto) 0.2 TH/MM3 Basophils # (Auto) 0.1 TH/MM3 CBC Comment DIFF FINAL Differential Comment Blood Urea Nitrogen 13 MG/DL Creatinine 1.11 MG/DL Random Glucose 84 MG/DL Total Protein 7.1 GM/DL Albumin 3.4 GM/DL Calcium Level 9.1 MG/DL Alkaline Phosphatase 88 U/L Aspartate Amino Transf (AST/SGOT) 28 U/L Alanine Aminotransferase (ALT/SGPT) 42 U/L Total Bilirubin 0.2 MG/DL Sodium Level 140 MEQ/L Potassium Level 3.8 MEQ/L Chloride Level 104 MEQ/L Carbon Dioxide Level 28.3 MEQ/L Anion Gap 8 MEQ/L Estimat Glomerular Filtration Rate 89 ML/MIN Thyroid Stimulating Hormone 3rd Gen 1.850 uIU/ML MDM Supervised Visit with ANU: No Narrative Course Yonatan has evaluated the patient and cleared the patient for discharge. The patient will follow-up with Thee Roman for medication dosing today and tomorrow. Patient contracts safety. Denies suicidal or homicidal ideations. Patient will be provided community resource packet to /[facility] for follow-up. Has friends and family for support. Patient was medically cleared by alternate provider prior to psych screening. Patient has been evaluated by psychiatry and and is now cleared for discharge. Diagnosis Primary Impression: Psychiatric disorder Referrals: [facility] Primary Care Physician Psychiatrist Koko [facility] Patient Instructions: General Instructions, Medical Clearance for Psychiatric Care (ED) Additional Instruction: Contract safety to your self and others Follow-up with psychiatry Follow-up with primary care provider Follow-up with Harsh Fontanez Return to the emergency department immediately with worsening of symptoms Med/Other Pt SpecificInfo: No Change to Meds, No Meds Exist/No RX given Disposition: 01 DISCHARGE HOME Condition: Stable Aad Dee Aug 21, 2017 11:42
== END 2017-08-21 12:31 | disposition home or self-care (01) ==
LOC: NEPD 03:19
DX: F99 Mental disorder, not otherwise specified (principal); F31.9 Bipolar disorder, unspecified; I25.2 Old myocardial infarction; F20.9 Schizophrenia, unspecified; B19.20 Unspecified viral hepatitis C without hepatic coma; F12.90 Cannabis use, unspecified, uncomplicated; F17.210 Nicotine dependence, cigarettes, uncomplicated
CPT/HCPCS: 80053; 84443; 85025; 99283

== ENCOUNTER 2017-10-02 02:14 | Emergency (ER) | payer OTHER ==
[~2017-10-02] VITALS: Ht 167.6 cm; Wt 71.0 kg
[2017-10-02 02:21] VITALS: BP 129/82; PULSE 91; RESP 16; TEMP 98.5; O2SAT 99
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
[2017-10-02 04:42] LABS: AUTOMATED NEUTROPHIL # 5.6 TH/MM3 (1.8-7.7); BASOPHIL # 0.1 TH/MM3 (0-0.2); BASOPHIL % 0.9 % (0.0-2.0); EOSINOPHIL # 0.1 TH/MM3 (0-0.4); EOSINOPHIL % 1.6 % (0.0-4.0); HEMATOCRIT 40.6 % (39.0-51.0); HEMOGLOBIN 13.4 GM/DL (13.0-17.0); LYMPH % 26.3 % (9.0-44.0); LYMPHOCYTE # 2.4 TH/MM3 (1.0-4.8); MEAN CELL VOLUME 80.3 FL (80.0-100.0); MEAN CORPUSCULAR HEMOGLOBIN 26.4 PG (27.0-34.0); MEAN CORPUSCULAR HGB CONC 32.9 % (32.0-36.0); MEAN PLATELET VOLUME 9.4 FL (7.0-11.0); MONO % 9.7 % (0.0-8.0); MONOCYTE # 0.9 TH/MM3 (0-0.9); NEUT % 61.5 % (16.0-70.0); PLATELET COUNT 156 TH/MM3 (150-450); RED BLOOD COUNT 5.06 MIL/MM3 (4.50-5.90); WHITE BLOOD COUNT 9.1 TH/MM3 (4.0-11.0)
[2017-10-02 04:59] LABS: ALBUMIN 4.1 GM/DL (3.4-5.0); ALT (GPT) 62 U/L (12-78); AST (GOT) 81 U/L (15-37); BICARBONATE 26.5 MEQ/L (21.0-32.0); BLOOD UREA NITROGEN 20 MG/DL (7-18); CALCIUM 9.2 MG/DL (8.5-10.1); CHLORIDE 105 MEQ/L (98-107); CREATININE 1.04 MG/DL (0.60-1.30); GLOMERULAR FILTRATION RATE 96 ML/MIN (>89); GLUCOSE,RANDOM 80 MG/DL (74-106); SODIUM (NA) 141 MEQ/L (136-145)
[2017-10-02 05:02] LABS: ALKALINE PHOSPHATASE 86 U/L (45-117); TOTAL BILIRUBIN ADULT 0.9 MG/DL (0.2-1.0); TOTAL PROTEIN 8.3 GM/DL (6.4-8.2)
--- NOTE | 2017-10-02 05:16 | RADRPT ---
EXAM DATE/TIME: 10/02/2017 04:47 [facility] COMPARISON: CT BRAIN W/O CONTRAST, July 30, 2017, 21:10. INDICATIONS : Altered mental status. RADIATION DOSE: 61.36 CTDIvol (mGy) MEDICAL HISTORY : Seizures. Hepatitis C. Multi-drug use. SURGICAL HISTORY : None. ENCOUNTER: Initial ACUITY: 1 day PAIN SCALE: Non-responsive LOCATION: cranial TECHNIQUE: Multiple contiguous axial images were obtained of the head. Using automated exposure control and adj ustment of the mA and/or kV according to patient size, radiation dose was kept as low as reasonably a chievable to obtain optimal diagnostic quality images. DICOM format image data is available electro nically for review and comparison. FINDINGS: CEREBRUM: The ventricles are normal for age. No evidence of midline shift, mass lesion, hemorrhage or acute in farction. No extra-axial fluid collections are seen. POSTERIOR FOSSA: The cerebellum and brainstem are intact. The 4th ventricle is midline. The cerebellopontine angle i s unremarkable. EXTRACRANIAL: The visualized portion of the orbits is intact. SKULL: The calvaria is intact. No evidence of skull fracture. CONCLUSION: 1. Negative noncontrast CT brain. Christos Nolasco MD on October 02, 2017 at 5:14 Board Certified Radiologist. This report was verified electronically.
[2017-10-02 10:13] VITALS: BP 214/94; PULSE 102; RESP 16; O2SAT 98
--- NOTE | 2017-10-02 10:21 | PD ---
Physical Exam Time Seen by Provider: 10:19 Narrative See previous providers note for initial history and physical. The patient is awake, alert, clinically sober and ambulating in the room. He is ready and safe for discharge. Data Data Last Documented VS Vital Signs Date Time Temp Pulse Resp B/P (MAP) Pulse Ox O2 Delivery O2 Flow Rate FiO2 10/02/17 10:13 102 16 214/94 (134) 98 Room Air 10/02/17 02:21 98.5 Orders Orders Complete Blood Count With Diff (10/02/17 04:22) Comprehensive Metabolic Panel (10/02/17 04:22) Drug Screen, Random Urine (10/02/17 04:22) Alcohol (Ethanol) (10/02/17 04:22) Ct Brain W/O Iv Contrast(Rout) (10/02/17 ) Diet Regular Basic (10/02/17 Breakfast) Labs Laboratory Tests Test 10/02/17 04:35 White Blood Count 9.1 TH/MM3 Red Blood Count 5.06 MIL/MM3 Hemoglobin 13.4 GM/DL Hematocrit 40.6 % Mean Corpuscular Volume 80.3 FL Mean Corpuscular Hemoglobin 26.4 PG Mean Corpuscular Hemoglobin Concent 32.9 % Red Cell Distribution Width 15.0 % Platelet Count 156 TH/MM3 Mean Platelet Volume 9.4 FL Neutrophils (%) (Auto) 61.5 % Lymphocytes (%) (Auto) 26.3 % Monocytes (%) (Auto) 9.7 % Eosinophils (%) (Auto) 1.6 % Basophils (%) (Auto) 0.9 % Neutrophils # (Auto) 5.6 TH/MM3 Lymphocytes # (Auto) 2.4 TH/MM3 Monocytes # (Auto) 0.9 TH/MM3 Eosinophils # (Auto) 0.1 TH/MM3 Basophils # (Auto) 0.1 TH/MM3 CBC Comment DIFF FINAL Differential Comment Blood Urea Nitrogen 20 MG/DL Creatinine 1.04 MG/DL Random Glucose 80 MG/DL Total Protein 8.3 GM/DL Albumin 4.1 GM/DL Calcium Level 9.2 MG/DL Alkaline Phosphatase 86 U/L Aspartate Amino Transf (AST/SGOT) 81 U/L Alanine Aminotransferase (ALT/SGPT) 62 U/L Total Bilirubin 0.9 MG/DL Sodium Level 141 MEQ/L Potassium Level 4.6 MEQ/L Chloride Level 105 MEQ/L Carbon Dioxide Level 26.5 MEQ/L Anion Gap 10 MEQ/L Estimat Glomerular Filtration Rate 96 ML/MIN Urine Opiates Screen POS Urine Barbiturates Screen NEG Urine Amphetamines Screen POS Urine Benzodiazepines Screen NEG Urine Cocaine Screen POS Urine Cannabinoids Screen NEG Ethyl Alcohol Level LESS THAN 3 MG/DL MDM Supervised Visit with ANU: No Narrative Course See previous providers note for initial history and physical. The patient is awake, alert, clinically sober and ambulating in the room. He is ready and safe for discharge. Diagnosis Primary Impression: Polysubstance abuse Referrals: [facility] (Out patient) [facility] Primary Care Physician Koko [facility] Behavior[facility] Patient Instructions: General Instructions, Polysubstance Abuse (ED) Additional Instruction: Contract safety to your self and others Stop drinking alcohol Stop using drugs Follow-up in the community for support such as Alcoholics Anonymous, Narcotics Anonymous Follow-up with psychiatry Follow-up with primary care provider Follow-up with Harhs Boyer/[facility] Return to the emergency department immediately with worsening of symptoms Med/Other Pt SpecificInfo: No Change to Meds, No Meds Exist/No RX given Disposition: 01 DISCHARGE HOME Condition: Stable Ada Dee Oct 02, 2017 10:21
== END 2017-10-02 10:54 | disposition home or self-care (01) ==
LOC: NEDAMB 02:14 → NEPD 10:54
DX: F19.10 Other psychoactive substance abuse, uncomplicated (principal); F20.9 Schizophrenia, unspecified; F31.9 Bipolar disorder, unspecified; B19.20 Unspecified viral hepatitis C without hepatic coma; I25.2 Old myocardial infarction; F17.200 Nicotine dependence, unspecified, uncomplicated; F12.90 Cannabis use, unspecified, uncomplicated; F15.90 Other stimulant use, unspecified, uncomplicated; F11.90 Opioid use, unspecified, uncomplicated
CPT/HCPCS: 70450; 80053; 80307; 85025; 99284

== ENCOUNTER 2017-10-02 11:19 | Emergency (ER) | payer SELFPAY ==
[2017-10-02 11:54] VITALS: BP 150/89; PULSE 85; RESP 18; TEMP 97.7; O2SAT 100
--- NOTE | 2017-10-02 13:56 | PD ---
HPI Chief Complaint: Psychiatric Symptoms Time Seen by Provider: 13:55 Travel History International Travel<30 days: No Contact w/Intl Traveler<30days: No Traveled to known affect area: No History of Present Illness HPI 42-year-old male presents to the emergency department voluntarily for psychiatric evaluation. He was here this morning and discharged after being brought in under [employer] [place] and giving time to sleep off. He became agitated after being discharged this morning and says that he had more things he needs to be seen about but he wanted to leave. According to the nurse the patient was being harassed by law-enforcement on [address]. The patient says he is trying to do the right things so he can see his daughter. He reports hearing suicidal and denies having a plan. Reports history of suicidal attempts by hanging himself. Says that he is having homicidal ideations towards "anyone." Reports having auditory and visual hallucinations "sometimes. " Reports illicit drug use. Reports using methamphetamine, heroin, cocaine. Reports occasional alcohol use. Denies tobacco use. Unknown duration. Unknown onset. No known aggravating or relieving factors. Symptoms are moderate to severe in severity. No primary care provider. No psychiatry. Allergies to clindamycin. Says he has history of schizophrenia and does not take medications. Has no other medical complaints. No other modifying factors or associated signs and symptoms. PFSH Past Medical History Bipolar Disorder: Yes Depression: Yes Cardiovascular Problems: Yes (AORTIC TUMOR) Diminished Hearing: No Gastrointestinal Disorders: Yes (PANCREATITIS) Hepatitis: Yes (C) Immunizations Current: Yes Myocardial Infarction: Yes Schizophrenia: Yes Seizures: Yes Past Surgical History Other Surgery: Yes (hand) Social History Alcohol Use: Yes Tobacco Use: Yes (1 ppd) Substance Use: Yes Allergies-Medications (Allergen,Severity, Reaction): Coded Allergies: clindamycin (Verified Allergy, Intermediate, EDEMA, 10/02/17) Reported Meds & Prescriptions Reported Meds & Active Scripts Active Review of Systems Except as stated in HPI: all other systems reviewed are Neg Physical Exam Narrative GENERAL: Well-nourished, well-developed black male patient, in no acute distress SKIN: Warm and dry. HEAD: Atraumatic. Normocephalic. EYES: Pupils equal and round. ENT: Mucosa pink and moist. NECK: Supple. Trachea midline. CARDIOVASCULAR: Regular rate and rhythm. No murmur appreciated. RESPIRATORY: No accessory muscle use. Clear to auscultation. Breath sounds equal bilaterally. GASTROINTESTINAL: Abdomen soft, non-tender, nondistended. Hepatic and splenic margins not palpable. Bowel sounds are active 4 quadrants. MUSCULOSKELETAL: No obvious deformities. No clubbing. No cyanosis. No edema. BACK: No CVA tenderness. NEUROLOGICAL: Awake and alert. Oriented 3. No obvious cranial nerve deficits. Motor grossly within normal limits. Normal speech. Moves all extremities. 5/5 strength to all extremities. PSYCHIATRIC: No delusional thought processes. No hallucinations. Data Data Last Documented VS Vital Signs Date Time Temp Pulse Resp B/P (MAP) Pulse Ox O2 Delivery O2 Flow Rate FiO2 10/02/17 11:54 97.7 85 18 150/89 (109) 100 Orders Orders Psych Screen (10/02/17 12:11) [facility] Medical Decision Making Medical Screen Exam Complete: Yes Emergency Medical Condition: Yes Medical Record Reviewed: Yes Differential Diagnosis Encounter for psychological evaluation, schizophrenia, suicidal ideation, homicidal ideation Narrative Course Patient presents voluntarily. Patient was seen earlier this morning as a [place] act and CBC, CMP were unremarkable. The patient was positive for opiates, amphetamines, and cocaine. A CT of his head was obtained and was unremarkable. Psych screen has been ordered. The patient is medically cleared for psychological evaluation. Diagnosis Primary Impression: Encounter for psychological evaluation Condition: Stable Ada Dee Oct 02, 2017 13:56
[2017-10-02 23:50] VITALS: BP 116/83; PULSE 93; RESP 16; O2SAT 98
[2017-10-03 06:41] VITALS: BP 124/69; PULSE 66; RESP 16; O2SAT 99
[2017-10-03 13:28] VITALS: BP 119/76; PULSE 82; RESP 16; TEMP 98.1; O2SAT 100
--- NOTE | 2017-10-03 14:31 | PD ---
Physical Exam Date Seen by Provider: Oct 03, 2017 Time Seen by Provider: 14:29 Narrative 42-year-old male previously seen at [facility] came in voluntarily for psychiatric evaluation. He was medically cleared for psychiatric evaluation which has been performed by our psychiatric staff. Patient is now going to be discharged and transferred to [facility] for further treatment of his ongoing substance abuse. Patient remains medically stable at this time. Data Data Last Documented VS Vital Signs Date Time Temp Pulse Resp B/P (MAP) Pulse Ox O2 Delivery O2 Flow Rate FiO2 10/03/17 13:28 98.1 82 16 119/76 (90) 100 Room Air Orders Orders Psych Screen (10/02/17 12:11) Diet Regular Basic (10/02/17 Dinner) Diet Regular Basic (10/03/17 Breakfast) Diet Regular Basic (10/03/17 Lunch) MDM Medical Record Reviewed: Yes Supervised Visit with ANU: Yes Ann Course 42-year-old male previously seen at [facility] came in voluntarily for psychiatric evaluation. He was medically cleared for psychiatric evaluation which has been performed by our psychiatric staff. Patient is now going to be discharged and transferred to [facility] for further treatment of his ongoing substance abuse. Patient remains medically stable at this time. Diagnosis Primary Impression: Encounter for psychological evaluation Patient Instructions: General Instructions Scripts No Active Prescriptions or Reported Meds Disposition: 70 TRANSFER TO OTHER FACILITY Condition: Stable Yonatan Henry Oct 03, 2017 14:31
--- NOTE | 2017-10-03 14:32 | PD ---
History of Present Illness Chief Complaint: Psychiatric Symptoms Time Seen by Provider: 14:10 Travel History International Travel<30 Days: No Contact w/Intl Traveler<30days: No Known affected area: No Legal Status Legal Status: Voluntary History of Present Illness: History of Present Illness HPI 42-year-old male with history of substance use disorder, and reported history of schizophrenia who presents to the emergency department voluntarily for psychiatric evaluation. Patient had been seen earlier in the day in the ED when he was brought in by the police under a [place] act. He was allowed time to sleep it off and was discharge. He later came back saying he needed other things that he needed to take care of. He also said that the police were given him a hard time while he was out trying to walk home. The patient was monitored in [facility] and he presented no behavioral concerns and no suicidality. EMR is reviewed. He has several visits to the ED for substance related issues. His most recent toxicology is positive for cocaine, amphetamines, and opiates. The patient is seen with case monitor Yonatan. The patient is alert, calm and cooperative. His speech is very soft and hard to understand at times. He states that he was just trying to get home and the police forgiven him a hard time. He denies any suicidal or homicidal ideation, intent or plan. He does not appear to be responding to internal stimuli. No evidence of any psychosis. No jeff or hypomania. The patient states he is trying to get a job as well as wanting to go to [facility] to get back on his medication. PFSH Past Medical History Bipolar Disorder: Yes Depression: Yes Cardiovascular Problems: Yes (AORTIC TUMOR) Diminished Hearing: No Gastrointestinal Disorders: Yes (PANCREATITIS) Hepatitis: Yes (C) Immunizations Current: Yes Myocardial Infarction: Yes Schizophrenia: Yes Seizures: Yes Past Surgical History Other Surgery: Yes (hand) Psychiatric History Psychiatric History Hx Psychiatric Treatment: Receives outpatient care at [facility] History of Inpatient Treatment: No Guns or firearms in home: No Social History Single male, unemployed, lives with a friend . Released from long-term on September 28, 2017. Hx Alcohol Use: Yes Hx Tobacco Use: Yes (1 ppd) Hx Substance Use: Yes Substance Use Type: Heroin Other Substances Used: SMA Hx of Substance Use Treatment: Yes Family Psychiatric History Negative Allergies-Medications (Allergen,Severity, Reaction): Coded Allergies: clindamycin (Verified Allergy, Intermediate, EDEMA, 10/02/17) Reported Meds & Prescriptions Reported Meds & Active Scripts Active No Active Prescriptions or Reported Medications Review of Systems Psychiatric: DENIES: Anxiety, Confusion, Mood changes, Depression, Hallucinations, Agitation, Suicidal Ideation, Homicidal Ideation, Delusions Except as stated in HPI: all other systems reviewed are Neg Mental Status Examination Appearance: Appropriate Consciousness: Alert Orientation: x4 Motor Activity: Normal gait Speech: Unremarkable Language: Adequate Fund of Knowledge: Adequate Attention and Concentration: Adequate Memory: Unremarkable Mood: Appropriate Affect: Appropriate Thought Process & Associations: Intact, Logical, Goal directed Thought Content: Appropriate Hallucination Type: None Delusion Type: None Suicidal Ideation: No Suicidal Plan: No Suicidal Intention: No Homicidal Ideation: No Homicidal Plan: No Homicidal Intention: No Insight: Fair Judgment: Adequate [facility] Medical Decision Making Medical Record Reviewed: Yes Assessment/Plan 42-year-old male with history of substance use disorder, and reported history of schizophrenia who presents to the emergency department voluntarily for psychiatric evaluation. Patient had been seen earlier in the day in the ED when he was brought in by the police under a [place] act. He was allowed time to sleep it off and was discharge. He later came back saying he needed other things that he needed to take care of. He also said that the police were given him a hard time while he was out trying to walk home. The patient did not present any suicidality while he was here on the unit. The patient denies any suicidal or homicidal ideation, intent or plan. The patient is cognitively intact with no evidence of any hallucinations or any other symptom of psychosis. He wants to go to [facility] for follow-up and will be provided a ride to their office. At this time the patient does not meet criteria for inpatient psychiatric treatment and can be managed on an outpatient basis. Substance abuse is a major contributing factor in his presentation. Psychiatrically clear for discharge from the ED. Orders Orders Diet Regular Basic (10/02/17 Dinner) Diet Regular Basic (10/03/17 Breakfast) Diet Regular Basic (10/03/17 Lunch) Results Vital Signs Date Time Temp Pulse Resp B/P (MAP) Pulse Ox O2 Delivery O2 Flow Rate FiO2 10/03/17 13:28 98.1 82 16 119/76 (90) 100 Room Air 10/03/17 06:41 66 16 124/69 (87) 99 10/02/17 23:50 93 16 116/83 (94) 98 Room Air Diagnosis Primary Impression: Encounter for psychological evaluation Additional Impressions: Polysubstance abuse Substance induced mood disorder Psychiatrically Cleared: Yes Med/ Other Pt Specific Info: No Meds Exist/No RX given Prescriptions No Active Prescriptions or Reported Meds Disposition: 01 DISCHARGE HOME Condition: Stable Problem Qualifiers Francia Johnson Oct 03, 2017 14:32
== END 2017-10-03 17:31 | disposition home or self-care (01) ==
LOC: NEPJ 11:19
DX: F19.14 Other psychoactive substance abuse with psychoactive substance-induced mood disorder (principal); F20.9 Schizophrenia, unspecified; F31.9 Bipolar disorder, unspecified; I25.2 Old myocardial infarction; B19.20 Unspecified viral hepatitis C without hepatic coma; F17.200 Nicotine dependence, unspecified, uncomplicated
CPT/HCPCS: 99284